=== PATIENT | male | born 1980 | race Two or more races ===

== ENCOUNTER 2016-05-28 16:57 | Emergency (ER) | payer OTHER ==
[~2016-05-28] VITALS: Ht 172.7 cm; Wt 81.6 kg
[2016-05-28] MEDS ORDERED: LORAZEPAM INJ 2 MG/ML VIAL ONE ×2 (17:15→18:21)
[2016-05-28] MEDS ORDERED: IV LR 1000 ML 1,000 ML ONE (17:15)
[2016-05-28] MEDS ORDERED: IV SET PRIMARY 1 EA INFUS.SET MC ONE (17:15)
[2016-05-28 17:18] LABS: BASOPHILS % (AUTO) 0.5 % (0.0-2.0); DIFF TOTAL % 100 %; EOSINOPHILS # (AUTO) 0.1 /CMM (0.0-0.7); HEMATOCRIT 45 % (39-51); HEMOGLOBIN 15.4 g/dL (13.5-17.5); LYMPHOCYTES # (AUTO) 1.8 /CMM (0.8-4.8); LYMPHOCYTES % (AUTO) 27.6 % (20.0-44.0); MEAN CORPUSCULAR HEMOGLOBIN 32 PG (26.0-33.0); MEAN CORPUSCULAR HGB CONC 34 g/dl (31.0-36.0); MEAN CORPUSCULAR VOLUME 95 fL (80-96); MONOCYTES # (AUTO) 0.5 /CMM (0.1-1.30); MONOCYTES % (AUTO) 8.3 % (2.0-12.0); NEUTROPHILS # (AUTO) 4.2 /CMM (1.8-8.9); NEUTROPHILS % (AUTO) 62.6 % (43.0-81.0); PLATELET COUNT (AUTO) 222 /CMM (150-450); RED BLOOD CELL COUNT(AUTO) 4.77 MIL/uL (4.5-6.0); WHITE BLOOD COUNT (AUTO) 6.6 K/uL (4.3-11.0)
[2016-05-28] MEDS ORDERED: IV LR 1000 ML 1,000 ML IV ONE (17:30)
[2016-05-28] MEDS ORDERED: LORAZEPAM INJ 2 MG/ML VIAL IVP ONE (17:30)
[2016-05-28 17:56] LABS: ALANINE AMINOTRANSFERASE 297 U/L (12-78); ALBUMIN 4.1 g/dL (3.4-5.0); ANION GAP 27 (5-14); ASPARTATE AMINOTRANSFERASE 301 U/L (15-37); BILIRUBIN,DIRECT 1.4 mg/dL (0.0-0.2); BILIRUBIN,TOTAL 2.2 mg/dL (0.2-1.0); CARBON DIOXIDE 17 mmol/L (21-32); CHLORIDE 95 mmol/L (98-107); CREATININE 1.4 mg/dL (0.6-1.3); GFR 58 mL/min (>60); GLUCOSE 233 mg/dL (74-106); INDIRECT BILIRUBIN 0.8 mg/dL (0.0-1.1); POTASSIUM 3.9 mmol/L (3.5-5.1); SODIUM SERUM 135 mmol/L (136-145); TOTAL PROTEIN, SERUM 8.1 g/dL (6.4-8.2); UREA NITROGEN, BLOOD 5 mg/dL (7-18)
[2016-05-28 18:05] LABS: INR 1.06 (0.87-1.13); PROTHROMBIN TIME 11.5 SECS (9.5-12.7)
[2016-05-28] MEDS ORDERED: IV NS 0.9% 1,000 ML ONE (18:21)
[2016-05-28] MEDS ORDERED: LORAZEPAM INJ 2 MG/ML VIAL IV ONE (18:30)
[2016-05-28] MEDS ORDERED: IV NS 0.9% 1,000 ML IV ONE (18:30)
[2016-05-28 19:10] VITALS: BP 142/101
[2016-05-28 19:31] LABS: CANNABINOID, URINE NEGATIVE (NEGATIVE); PHENCYCLIDINE SCREEN,URINE NEGATIVE (NEGATIVE)
== END 2016-05-28 19:11 ==
LOC: ER 16:59
DX: R56.9 Unspecified convulsions (principal); F41.9 Anxiety disorder, unspecified; F10.20 Alcohol dependence, uncomplicated
CPT/HCPCS: 36415; 70450; 80048; 80076; 80305; 85025; 85730; 93005; 96361; 96374; 96376; 99285; A4606; G0481; J2060 ×2; J7030; J7120; Z7610; G6040-TC

== ENCOUNTER 2017-01-19 20:55 | Emergency (ER) | payer OTHER ==
[~2017-01-19] VITALS: Ht 177.8 cm; Wt 81.6 kg
--- NOTE | 2017-01-19 21:00 | NUR ---
TO BED 1 BIB [facility] FROM [facility] C/O ALCOHOL WITHDRAWAL. PT AAOX4 NO ACUTE DISTRESS NOTED, RESP EVEN AND UNLABORED. PLACE PT ON CARDIAC MONITORING, CONTINUOUS POX. PENDING ER MD HINSON.
--- NOTE | 2017-01-19 21:09 | NUR ---
JEANA SUPERVISOR LEAF SPRING REPAIR AT BEDSIDE TO EVAL PT WITH ORDERS RECEIVED.
[2017-01-19] MEDS ORDERED: THIAMINE HCL 100 MG TABLET PO ONE (21:30)
[2017-01-19] MEDS ORDERED: IV NS 0.9% 1,000 ML BAG IV ONE (21:30)
[2017-01-19] MEDS ORDERED: LORAZEPAM INJ 2 MG/ML VIAL IVP ONE (21:30)
[2017-01-19 21:35] LABS: EOSINOPHILS % (AUTO) 0.5 % (0.0-6.0); HEMATOCRIT 38 % (39-51); HEMOGLOBIN 12.9 g/dL (13.5-17.5); LYMPHOCYTES # (AUTO) 1.2 /CMM (0.8-4.8); LYMPHOCYTES % (AUTO) 25.4 % (20.0-44.0); MEAN CORPUSCULAR HEMOGLOBIN 34 PG (26.0-33.0); MEAN CORPUSCULAR HGB CONC 34 g/dl (31.0-36.0); MEAN CORPUSCULAR VOLUME 100 fL (80-96); MONOCYTES # (AUTO) 0.4 /CMM (0.1-1.30); MONOCYTES % (AUTO) 8.6 % (2.0-12.0); NEUTROPHILS % (AUTO) 64.5 % (43.0-81.0); PLATELET COUNT (AUTO) 133 /CMM (150-450); RDW COEFFICIENT OF VARIATION 14.1 (11.5-15.0); RED BLOOD CELL COUNT(AUTO) 3.85 MIL/uL (4.5-6.0); WHITE BLOOD COUNT (AUTO) 4.6 K/uL (4.3-11.0)
[2017-01-19] MEDS ORDERED: THIAMINE HCL 100 MG TABLET ONE (21:36)
[2017-01-19] MEDS ORDERED: LORAZEPAM INJ 2 MG/ML VIAL ONE (21:37)
[2017-01-19 21:49] LABS: CALCIUM, SERUM 9.1 mg/dL (8.5-10.1); CARBON DIOXIDE 26 mmol/L (21-32); CHLORIDE 95 mmol/L (98-107); CREATININE 0.9 mg/dL (0.6-1.3); GLUCOSE 124 mg/dL (74-106); POTASSIUM 3.3 mmol/L (3.5-5.1); SODIUM SERUM 135 mmol/L (136-145); UREA NITROGEN, BLOOD 10 mg/dL (7-18)
[2017-01-19 21:55] LABS: ALANINE AMINOTRANSFERASE 68 U/L (12-78); ALBUMIN 3.9 g/dL (3.4-5.0); ALCOHOL, BLOOD < 3 mg/dL (0-0); ALKALINE PHOSPHATASE 177 U/L (46-116); ASPARTATE AMINOTRANSFERASE 176 U/L (15-37); BILIRUBIN,DIRECT 0.7 mg/dL (0.0-0.2); BILIRUBIN,TOTAL 1.9 mg/dL (0.2-1.0); TOTAL PROTEIN, SERUM 7.2 g/dL (6.4-8.2)
--- NOTE | 2017-01-19 22:50 | NUR ---
IV removed. Catheter intact and site benign. Pressure and 4x4 applied to site. No bleeding noted. pt medically cleared per orly Floating Operator. pt aaox4 no acute distress noted, resp even and unlabored. Patient discharged to [employer] custody in stable condition. Written and verbal after care instructions given. Patient verbalizes understanding of instruction.
[2017-01-19 22:51] VITALS: BP 132/83
== END 2017-01-19 22:52 | disposition home or self-care (01) ==
LOC: ER 20:57
DX: F10.239 Alcohol dependence with withdrawal, unspecified (principal); F41.9 Anxiety disorder, unspecified
CPT/HCPCS: 36415; 80048; 80076; 83735; 85025; 93005; 96361; 96374; 99284; A4606; G0480; J2060; J7030; Z7610